=== PATIENT | female | born 1975 | race Caucasian/White ===

== ENCOUNTER 2020-04-01 18:27 | Emergency (ER) | payer OTHER, SELFPAY ==
[2020-04-01 19:00] VITALS: BP 169/94; PULSE 78; RESP 16; TEMP 36.6; O2SAT 99
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
== END 2020-04-01 19:32 | disposition home or self-care (01) ==
PROVIDERS: Emergency Provider Nurse Practitioner; PCP Internal Medicine
DX: L03.114 Cellulitis of left upper limb (principal); T22.212A Burn of second degree of left forearm, initial encounter; X19.XXXA Contact with other heat and hot substances, initial encounter; E78.00 Pure hypercholesterolemia, unspecified; I10 Essential (primary) hypertension; J45.909 Unspecified asthma, uncomplicated; K21.9 Gastro-esophageal reflux disease without esophagitis
CPT/HCPCS: 99213; G0463

== ENCOUNTER 2020-08-16 08:24 | Outpatient (CLI) | payer OTHER, SELFPAY ==
--- NOTE | ~2020-08-16 | MM_ITS ---
EXAMINATION: MM screening [facility] BI w parmjit HISTORY: Screening mammogram TECHNIQUE: Craniocaudal and mediolateral oblique 3-D tomosynthesis images were obtained and synthetic 2-D images were generated. CAD analysis was submitted and interpreted. COMPARISON: 07/27/2019, 07/24/2018, 07/09/2017 bilateral digital screening mammogram examinations.... BREAST PARENCHYMAL COMPOSITION: The breasts are heterogeneously dense, which may obscure small masses . FINDINGS: Stable fibroglandular asymmetry. Occasional bilateral benign calcifications. There is no ev idence of suspicious mass, calcification, or architectural distortion to suggest malignancy in either breast. There has been no suspicious interval change. IMPRESSION: 1. No mammographic evidence of malignancy. 2. Recommend routine screening mammography in one year. BI-RADS Category 2: Benign finding(s). Reviewed, dictated and finalized at location A. MATIC WHEEL LINE OPERATOR
== END 2020-08-16 08:25 | disposition home or self-care (01) ==
LOC: ANHIMG 08:32
PROVIDERS: PCP Internal Medicine
DX: Z12.31 Encounter for screening mammogram for malignant neoplasm of breast (principal)
CPT/HCPCS: 77063; 77067

== ENCOUNTER 2021-09-04 15:14 | Outpatient (CLI) | payer OTHER, SELFPAY ==
--- NOTE | ~2021-09-04 | US_ITS ---
EXAMINATION: US thyroid DATE: 09/04/2021 16:59 INDICATION: Enlarged thyroid TECHNIQUE: Multiple ultrasound images of the thyroid were obtained. COMPARISON: 06/19/2017 FINDINGS: The right thyroid lobe measures 4.4 x 1.4 x 1.7 cm. The left thyroid lobe measures 3.6 x 1.0 x 0.9 c m. The isthmus measures 4 mm in thickness .1.7 cm wider than tall isoechoic mass with lobular margins with both coarse shadowing calcifications as well as a few punctate echogenic foci (TI-RADS 5, highl y suspicious , FNA if >=1.0 cm, annual followup is >0.5 cm). There is a second 5 mm wide than tall pr edominately cystic nodule with small peripheral isoechoic solid component (TI-RADS 1, benign, no FNA recommended). Similar 4 mm cystic nodule with focus of peripheral, tingling at the inferior left thyr oid also TI RADS 1. There is otherwise normal echotexture, echogenicity and vascular flow throughout the thyroid gland. IMPRESSION: 1. A few thyroid nodules. Recommend ultrasound-guided biopsy of the largest and most concerning 1.7 c m TI RADS 5 right thyroid nodule. Reviewed, dictated and finalized at location H. E COORDINATOR IMPRESSION: 1. A few thyroid nodules. Recommend ultrasound-guided biopsy of the largest and most concerning 1.7 cm TI RADS 5 right thyroid nodule.
--- NOTE | ~2021-09-04 | MM_ITS ---
EXAMINATION: MM screening [facility] BI w parmjit HISTORY: Screening mammogram TECHNIQUE: Craniocaudal and mediolateral oblique 3-D tomosynthesis images were obtained and synthetic 2-D images were generated. CAD analysis was submitted and interpreted. COMPARISON: 08/16/2020, 07/27/2019, 07/24/2018 BREAST PARENCHYMAL COMPOSITION: The breasts are heterogeneously dense, which may obscure small masses . FINDINGS: There is no evidence of suspicious mass, calcification, or architectural distortion to sugg est malignancy in either breast. There has been no suspicious interval change. IMPRESSION: 1. No mammographic evidence of malignancy. 2. Recommend routine screening mammography in one year. BI-RADS Category 1: Negative Reviewed, dictated and finalized at location A. OR PAINTER
== END 2021-09-04 15:15 | disposition home or self-care (01) ==
PROVIDERS: PCP Internal Medicine
DX: Z12.31 Encounter for screening mammogram for malignant neoplasm of breast (principal); E04.2 Nontoxic multinodular goiter
CPT/HCPCS: 76536; 77063; 77067

== ENCOUNTER 2021-09-13 13:03 | Outpatient (CLI) | payer OTHER, SELFPAY ==
--- NOTE | ~2021-09-13 | US_ITS ---
EXAMINATION: US FNA w image guidance DATE: 09/13/2021 15:22 INDICATION: Right thyroid lobe nodule TECHNIQUE: A time-out was performed to verify the patient's name, date of , and procedure to be performed . The procedure and its benefits and risks were discussed with the patient. Risks specifically discus sed included bleeding and infection. The patient understood the risks and agreed to proceed. The neck was prepped and draped in the usual sterile manner. 3 mL 1% lidocaine was used for local anesthesia . 6 passes were made with a 25G needle into the lesion. Appropriate needle location was documented with continuous sonographic guidance. The specimens were passed to the nanotechnology engineering technologist in the room. A sterile bandage was applied. There were no immediate complications. FINDINGS: Grayscale ultrasound images demonstrate biopsy needles advanced into the enlarging 1.7 cm TI RADS 5 n odule with both coarse desiccation is and microcalcifications in the mid right thyroid. IMPRESSION: 1. Successful ultrasound-guided fine needle aspiration of the enlarging 1.7 cm TI RADS 5 right thyro id nodule. Reviewed, dictated and finalized at location A. UCTION REPRODUCTION MANAGER IMPRESSION: 1. Successful ultrasound-guided fine needle aspiration of the enlarging 1.7 cm TI RADS 5 right thyroid nodule.
== END 2021-09-13 13:04 | disposition home or self-care (01) ==
LOC: ANHIMG 13:15
PROVIDERS: PCP Internal Medicine
DX: E04.2 Nontoxic multinodular goiter (principal)
CPT/HCPCS: 10005; 88173; 88305

== ENCOUNTER 2021-09-25 17:03 | Outpatient (CLI) | payer OTHER, SELFPAY ==
--- NOTE | ~2021-09-25 | XR_ITS ---
EXAMINATION: XR wrist RT 2V DATE: 09/25/2021 17:30 INDICATION: Right wrist pain and swelling. TECHNIQUE: 2 views of right wrist were obtained. COMPARISON: None. FINDINGS: Bone alignment is normal. No fracture. There is mild osteoarthritis of first carpometacarpa l joint. IMPRESSION: 1. Mild osteoarthritis of first carpometacarpal joint. Reviewed, dictated and finalized at location B. HNUT ICER MACHINE
--- NOTE | ~2021-09-25 | XR_ITS ---
EXAMINATION: XR elbow RT 2V DATE: 09/25/2021 17:30 INDICATION: Right elbow injury and pain. TECHNIQUE: 2 views of right elbow were obtained. COMPARISON: Right forearm radiographs 11/16/2014 FINDINGS: Bone alignment is normal. No fracture. Joint spaces are well maintained. There is no elbow joint effusion. IMPRESSION: 1. Normal right elbow. Reviewed, dictated and finalized at location B. NCT INSTRUCTOR OF WOMEN'S STUDIES IMPRESSION: 1. Normal right elbow.
--- NOTE | ~2021-09-25 | XR_ITS ---
EXAMINATION: XR hand RT 2V DATE: 09/25/2021 17:29 INDICATION: Right hand pain and swelling. Fall. TECHNIQUE: 2 views of right hand were obtained. COMPARISON: None. FINDINGS: Bone alignment is normal. No fracture. There is mild osteoarthritis of first carpometacarpa l joint and third and fourth distal interphalangeal joints. IMPRESSION: 1. Mild polyarticular osteoarthritis. Reviewed, dictated and finalized at location B. RMAN/WOMAN
== END 2021-09-25 17:04 | disposition home or self-care (01) ==
PROVIDERS: PCP Internal Medicine; Visit Provider Physician Assistant
DX: M25.521 Pain in right elbow (principal); M19.031 Primary osteoarthritis, right wrist; M19.041 Primary osteoarthritis, right hand
CPT/HCPCS: 73070; 73100; 73120